=== PATIENT | male | born 1965 | race Caucasian/White ===

== ENCOUNTER 2016-07-07 09:53 | Emergency (ER) | payer BC, OTHER ==
[~2016-07-07] VITALS: Ht 193 cm; Wt 149.7 kg
[2016-07-07] MEDS ORDERED: LIDOCAINE 2% 20 ML (XYLOCAINE) VIAL INJ ONE (10:30)
[2016-07-07] MEDS ORDERED: LIDOCAINE 1% INJ 20 ML (XYLOCAINE) VIAL INJ ONE (10:30)
[2016-07-07] MEDS ORDERED: TETANUS,DIPTH,PERTUSS P/F (BOOSTRIX) 0.5 ML VIAL IM ONE (10:45)
[2016-07-07] MEDS ORDERED: CEPH-507 PO (10:50)
--- NOTE | 2016-07-07 10:50 | ED Upper Extremity ---
General Chief Complaint: Laceration Stated Complaint: L ARM LAC Nursing Triage Note: PT HAS 6 CM LAC TO L LATERAL ARM JUST DISTAL TO HIS ELBOW FROM A PIECE OF SHEET METAL. Nursing Sepsis Screen: No Definite Risk Source: patient Exam Limitations: no limitations History of Present Illness Time seen by provider: 10:47 Initial Comments The laceration to the lateral aspect of the distal left upper arm proximal to the elbow from a piece of sheet metal. Patient was unloading his van and then didn't realize how close he was to piece of sheet metal. Last tetanus shot was about 6 years ago. Onset: just prior to arrival Severity: moderate Pain/Injury Location: left elbow Method of Injury: unknown Modifying Factors: Worse With Movement Allergies and Home Medications Allergies Coded Allergies: No Known Drug Allergies (Unverified , 07/07/16) Constitutional: see HPI EENTM: see HPI Respiratory: no symptoms reported Cardiovascular: no symptoms reported Genitourinary: no symptoms reported Musculoskeletal: no symptoms reported Skin: no symptoms reported Psychiatric/Neurological: No Symptoms Reported Past Svdvwti-Tngihm-Kkwewe Hx Patient Social History Alcohol Use: Occasionally Uses Recreational Drug Use: No Smoking Status: Never a Smoker 2nd Hand Smoke Exposure: No Recent Foreign Travel: No Contact w/Someone Who Travel: No Recent Infectious Disease Expo: No Recent Hopitalizations: No Immunizations Up To Date Tetanus Booster (TDap): More than 5yrs Seasonal Allergies Seasonal Allergies: No Surgeries HX Surgeries: No Physical Exam Vital Signs Vital Sign - Last 12Hours 07/07/16 10:09 Temp 97.5 Pulse 75 Resp 16 B/P (MAP) 145/75 Pulse Ox 98 O2 Delivery Room Air Capillary Refill : Less Than 3 Seconds General Appearance: WD/WN, no apparent distress HEENT: PERRL/EOMI, normal ENT inspection Neck: non-tender, full range of motion Respiratory: no respiratory distress, no accessory muscle use Gastrointestinal: normal bowel sounds, non tender, soft Shoulder: normal inspection, non-tender Elbow/Forearm: Left, soft tissue tenderness (6 cm laceration to the lateral aspect of the left elbow depth to the subcutaneous tissue.) Wrist: Yes normal inspection, Yes non-tender Hand: normal inspection, non-tender, Left Neurologic/Psychiatric: alert, normal mood/affect, oriented x 3 Skin: normal color, warm/dry Laceration Repair : Wound Location: Upper Extremities Wound Length (cm): 6 Wound's Depth, Shape: sub Q Wound Explored: clean Irrigated w/ Saline (ccs): 40 Anesthesia: 1% Lidocaine Suture: Prolene Suture Size: 4-0 Number of Sutures: 6 Layer Closure?: 1 Number Deep Layer Sutures: 0 Progress Anesthetized with lidocaine, scrubbed with chlorhexidine/saline solution, irrigated with the same, closed with 1 simple interrupted suture and 5 horizontal mattress sutures Progress/Results/Core Measures Results/Orders My Orders Orders - JACINTO GUNTER APRN Lidocaine 2% Injection 20 Ml (Xylocaine (07/07/16 10:30) Dipht,Pertuss(Acell),Tet Adult (Boostrix (07/07/16 10:45) Vital Signs/I&O Vital Sign - Last 12Hours 07/07/16 10:09 Temp 97.5 Pulse 75 Resp 16 B/P (MAP) 145/75 Pulse Ox 98 O2 Delivery Room Air Blood Pressure Mean: 98 Departure Impression Impression: Primary Impression: Laceration Disposition: 01 HOME, SELF-CARE Condition: Stable Departure-Patient Inst. Decision time for Depature: 10:49 Referrals: NO,LOCAL PHYSICIAN (PCP/Family) Primary Care Physician Patient Instructions: Laceration Repair With Stitches (DC) Add. Discharge Instructions: 1. Keep this clean dry and covered. You may wash it gently in the shower tonight allowing water to run over it but do not soak it in water such as a hot tub sewing pool or [place] until stitches come out 2. Return to ER in 10 days to have the stitches out 3. Return to ER before then for any sign of infection such as redness or swelling All discharge instructions reviewed with patient and/or family. Voiced understanding. Scripts Cephalexin (Keflex) 500 Mg Capsule 500 MG PO QID, #16 CAP Prov: JACINTO GUNTER APRN 07/07/16 JACINTO GUNTER APRN Jul 07, 2016 10:50
[2016-07-07 11:05] VITALS: BP 145/75
== END 2016-07-07 11:05 | disposition home or self-care (01) ==
LOC: ER 09:55
DX: S41.112A Laceration without foreign body of left upper arm, initial encounter (principal); Z23 Encounter for immunization; W26.8XXA Contact with other sharp object(s), not elsewhere classified, initial encounter; Y92.818 Other transport vehicle as the place of occurrence of the external cause; Y99.8 Other external cause status
CPT/HCPCS: 12002; 90471; 90715

== ENCOUNTER 2016-07-17 08:20 | Emergency (ER) | payer BC ==
[~2016-07-17] VITALS: Ht 190.5 cm; Wt 113.4 kg
[~2016-07-17 08:20] MED LIST: CEPH-507 PO
[2016-07-17 08:33] VITALS: BP 136/81
== END 2016-07-17 08:33 | disposition home or self-care (01) ==
LOC: EDUNIT# 08:20 → ER 08:23
DX: S51.012D Laceration without foreign body of left elbow, subsequent encounter (principal)

== ENCOUNTER 2017-06-07 19:17 | Emergency (ER) | payer BC ==
[~2017-06-07] VITALS: Ht 193 cm; Wt 145.1 kg
--- NOTE | 2017-06-07 20:03 | Diagnostic Imaging Report ---
INDICATION: Pain. Three views were obtained. FINDINGS: The plafonds and talar dome are intact. The ankle mortise is symmetric. There are degenerative changes in the ankle and midfoot. There is a questionable tiny avulsion fracture of the distal fibula. There is soft tissue swelling laterally. IMPRESSION: Questionable tiny avulsion fracture of the distal fibula with some overlying soft tissue swelling. Degenerative changes. Dictated by: Dictated on workstation # [id number]
--- NOTE | 2017-06-07 20:25 | ED Lower Extremity ---
General Chief Complaint: Trauma-Non Activation Stated Complaint: FELL,ANKLE PAIN Nursing Triage Note: Patient c/o right ankle pain, right knee pain, right wrist pain and facial abrasions secondary to a fall. Nursing Sepsis Screen: No Definite Risk Source: patient Exam Limitations: no limitations History of Present Illness Date Seen by Provider: Jun 07, 2017 Time Seen by Provider: 19:32 Initial Comments This 51-year-old gentleman presents to emergency room with right ankle injury. He was peaking over a fence when he inverted his right ankle, possibly on a brick. He then fell to the ground and struck his face. He has abrasion to the face, right knee, and right hand. He has swelling and pain of the right ankle. He is weightbearing and ambulatory. He denies any loss of consciousness or symptoms of concussion. The only injury that really concerns him at this time is his ankle. Location Injury Occurred: pt. home Allergies and Home Medications Allergies Coded Allergies: No Known Drug Allergies (Unverified , 07/07/16) Home Medications Cephalexin 500 Mg Capsule, 500 MG PO QID Prescribed by: JACINTO GUNTER on 07/07/16 1050 Patient Home Medication List Home Medication List Reviewed: Yes Constitutional: no symptoms reported EENTM: see HPI Respiratory: no symptoms reported Cardiovascular: no symptoms reported Gastrointestinal: no symptoms reported Genitourinary: no symptoms reported Musculoskeletal: see HPI Skin: see HPI Psychiatric/Neurological: No Symptoms Reported Past Ajjzcdp-Cmotsw-Yvhkby Hx Patient Social History Alcohol Use: Occasionally Uses Recreational Drug Use: No Smoking Status: Never a Smoker 2nd Hand Smoke Exposure: No Recent Foreign Travel: No Contact w/Someone Who Travel: No Recent Infectious Disease Expo: No Recent Hopitalizations: No Physical Abuse: No Sexual Abuse: No Immunizations Up To Date Tetanus Booster (TDap): More than 5yrs Seasonal Allergies Seasonal Allergies: No Surgeries History of Surgeries: No Respiratory History of Respiratory Disorde: No Cardiovascular History of Cardiac Disorders: No Neurological History of Neurological Disord: No Genitourinary History of Genitourinary Disor: No Gastrointestinal History of Gastrointestinal Di: No Musculoskeletal History of Musculoskeletal Dis: No Endocrine History of Endocrine Disorders: No HEENT History of HEENT Disorders: No Cancer History of Cancer: No Psychosocial History of Psychiatric Problem: No Suicide Risk Score: 0 Integumentary History of Skin or Integumenta: No Blood Transfusions History of Blood Disorders: No Physical Exam Vital Signs Vital Signs - First Documented 06/07/17 19:34 Temp 98.6 Pulse 76 Resp 14 B/P (MAP) 126/98 (107) Pulse Ox 98 O2 Delivery Room Air Capillary Refill : Less Than 3 Seconds General Appearance: WD/WN, no apparent distress HEENT: PERRL/EOMI, pharynx normal, other (Abrasions to the upper portion of his face. No significant tenderness. No dental injury.) Neck: normal inspection Cardiovascular: regular rate, rhythm, no edema, no murmur Respiratory: lungs clear, normal breath sounds, no respiratory distress Hips: right hip non-tender, right hip normal inspection, right hip no evidence of injury Legs: right leg non-tender, right leg normal inspection, right leg no evidence of injury Knees: right knee other (Abrasion to the anterior right knee with minimal tenderness) Ankles: right ankle bone tenderness, right ankle limited range of motion, right ankle pain, right ankle soft tissue tenderness, right ankle swelling, right ankle other (There is marked edema over the lateral malleolus and tenderness anterior and lateral to the ankle.) Feet: right foot non-tender, right foot normal inspection, right foot normal range of motion, right foot no evidence of injury Neurologic/Psychiatric: director of accreditation II-XII nml as tested, no motor/sensory deficits, alert, normal mood/affect, oriented x 3 Skin: normal color, warm/dry Laceration Repair : Suture Size: 4-0 Progress/Results/Core Measures Results/Orders My Orders Orders - SUSIE FULTON MD Ankle, Right, 3 Views (06/07/17 19:38) Vital Signs/I&O Vital Sign - Last 12Hours 06/07/17 06/07/17 19:34 21:03 Temp 98.6 98.6 Pulse 76 76 Resp 14 14 B/P (MAP) 126/98 (107) 126/98 (107) Pulse Ox 98 98 O2 Delivery Room Air Blood Pressure Mean: 107 Progress Note : Progress Note Patient has crutches at home. [place]ilson wraps were applied to the ankle. Patient was advised to follow-up with an orthopedic provider for reevaluation due to the avulsion fracture. See discharge instructions. Diagnostic Imaging Diagonstic Imaging: Xray Comments Ankle x-ray viewed by me and report reviewed. See report below: NAME: [facility] REC#: [id number] PT STATUS: REG ER : 1965 PHYSICIAN: SUSIE FULTON MD ADMIT DATE: 06/07/17/ER Draft Date of Exam:06/07/17 ANKLE, RIGHT, 3 VIEWS INDICATION: Pain. Three views were obtained. FINDINGS: The plafonds and talar dome are intact. The ankle mortise is symmetric. There are degenerative changes in the ankle and midfoot. There is a questionable tiny avulsion fracture of the distal fibula. There is soft tissue swelling laterally. IMPRESSION: Questionable tiny avulsion fracture of the distal fibula with some overlying soft tissue swelling. Degenerative changes. Dictated on workstation # [id number] Dict: 06/07/171957 Trans: 06/07/172002 APOLINAR [id number] Interpreted by: EM JEFFERSON MD Departure Impression Impression: Primary Impression: Right ankle sprain Qualified Codes: S93.401A - Sprain of unspecified ligament of right ankle, initial encounter Additional Impression: Avulsion fracture of lateral malleolus of right fibula Qualified Codes: S82.61XA - Displaced fracture of lateral malleolus of right fibula, initial encounter for closed fracture Disposition: 01 HOME, SELF-CARE Condition: Improved Departure-Patient Inst. Decision time for Depature: 20:30 Referrals: NO,LOCAL PHYSICIAN (PCP) Primary Care Physician BEAR PAUL MD Patient Instructions: Ankle Sprain Add. Discharge Instructions: Icing in 20 minute intervals, compression wrapping, elevation, and rest should help improve pain and swelling. Gradually increase level of activity as pain allows. Use crutches for the first few days to assist with ambulation. Obtain a lace up or Velcro brace that provides firm support and wear it whenever active for the next 4-6 weeks. Because there is a small avulsion fracture associated with the sprain, I advise that you follow-up with an orthopedic provider of your choice next week for further evaluation. Dr. Paul's contact information is below. Return to the ER or your primary care provider if you're having any problems or complications. You may use your prescription strength ibuprofen or [id number] ibuprofen up to 600 mg every 6 hours as needed. Add Tylenol (acetaminophen) up to 1000 mg every 6 hours as needed for additional pain relief. All discharge instructions reviewed with patient and/or family. Voiced understanding. SUSIE FULTON MD Jun 07, 2017 20:25
[2017-06-07 21:03] VITALS: BP 126/98
== END 2017-06-07 21:03 | disposition home or self-care (01) ==
LOC: EDUNIT# 19:17 → ER 19:19
DX: S82.61XA Displaced fracture of lateral malleolus of right fibula, initial encounter for closed fracture (principal); W19.XXXA Unspecified fall, initial encounter
CPT/HCPCS: 73610

== ENCOUNTER 2019-01-15 05:32 | Outpatient (CLI) | payer BC ==
[~2019-01-15] VITALS: Ht 193 cm; Wt 144.5 kg
== END 2019-01-15 12:59 | disposition home or self-care (01) ==
LOC: PREOP 05:32
PROVIDERS: ATTEND Internal Medicine
DX: Z01.818 Encounter for other preprocedural examination (principal)